=== PATIENT | male | born 1995 ===

== ENCOUNTER 2021-06-18 15:43 | Emergency (ER) | payer OTHER ==
[~2021-06-18] VITALS: Ht 182.9 cm; Wt 217.3 kg
[2021-06-18 15:46] VITALS: BP 156/94
[2021-06-18 16:36] LABS: BASOPHILS % (AUTO) 0 % (0-1); EOSINOPHILS % (AUTO) 1 % (1-7); LYMPHOCYTES % (AUTO) 26 % (22-44); MEAN CORPUSCULAR HEMOGLOBIN 27.1 pg (27.5-34.5); MEAN CORPUSCULAR HGB CONC 32.8 g/dL (33.2-36.2); MEAN PLATELET VOLUME 10.4 fL (7.4-10.4); MONOCYTES % (AUTO) 7 % (2-9); NEUTROPHILS % (AUTO) 65 % (42-75); PLATELET COUNT 189 x10^3/uL (130-400); RED BLOOD COUNT 5.07 x10^6/uL (4.38-5.82); RED CELL DISTRIBUTION WIDTH 14.9 % (9.4-14.8)
[2021-06-18 16:48] LABS: ALANINE AMINOTRANSFERASE 62 U/L (12-78); ALBUMIN 3.9 g/dL (3.4-5.0); ANION GAP 8 mmol/L (5-15); CALCIUM 9.1 mg/dL (8.5-10.1); CHLORIDE 108 mmol/L (98-107); CREATININE 0.85 mg/dL (0.7-1.3)
[2021-06-18 16:52] LABS: ALKALINE PHOSPHATASE 51 U/L (45-117); BILIRUBIN,TOTAL 0.4 mg/dL (0.2-1.0); TOTAL PROTEIN 7.4 g/dL (6.4-8.2)
--- NOTE | 2021-06-18 17:09 | NUR ---
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
== END 2021-06-18 17:11 | disposition left against medical advice (07) ==
LOC: ED 17:05
DX: R06.02 Shortness of breath (principal)
CPT/HCPCS: 36415; 71045; 80053; 83880; 85025; 93005; 99285